=== PATIENT | female | born 1990 | race Two or more races ===

== ENCOUNTER 2020-09-14 14:36 | Inpatient (IN) | payer MEDICAID ==
[~2020-09-14] VITALS: Ht 165.1 cm; Wt 112.5 kg
[2020-09-14] MEDS ORDERED: AZITHROMYCIN 500MG/ 250ML 250 ML IV ONE (15:15)
[2020-09-14] MEDS ORDERED: SODIUM CHLORIDE 0.9% 1,000 ML IV ONE (15:15)
[2020-09-14] MEDS ORDERED: CHOLECALCIFEROL (VITD3) 2,000 UNIT CAP/TAB PO ONE (15:15)
[2020-09-14] MEDS ORDERED: SODIUM CHLORIDE 0.9% 500 ML IVB ONE (15:15)
[2020-09-14] MEDS ORDERED: ASCORBIC ACID 500 MG TAB PO ONE (15:15)
[2020-09-14] MEDS ORDERED: ZINC SULFATE 220mg CAP or TAB PO ONE (15:15)
[2020-09-14 15:45] LABS: Basophils # (auto) 0 10 ^3/uL (0-0.2); Basophils % (auto) 0.3 % (0.0-2.0); Eosinophils # (auto) 0 10 ^3/uL (0-0.8); Hematocrit 44.3 % (36.0-46.0); Hemoglobin 15.6 g/dL (12.2-16.2); Lymphocytes # (auto) 0.7 10 ^3/uL (0.4-5.4); Lymphocytes % (auto) 24.1 % (10.0-50.0); Mean Corpuscular Hemoglobin 31.5 pg (28.0-32.0); Mean Corpuscular Hgb Conc. 35.1 g/dL (32.0-36.0); Mean Corpuscular Volume 89.9 fL (80.0-100.0); Monocytes # (auto) 0.2 10 ^3/uL (0-1.3); Monocytes % (auto) 8.2 % (0.0-12.0); Neutrophils # (auto) 1.9 10 ^3/uL (1.6-8.6); Neutrophils % (auto) 67.4 % (37.0-80.0); Red Blood Cells 4.93 10^6/uL (4.0-5.20); Red Cell Distribution Width 13.4 % (11.8-14.3); White Blood Cell 2.9 10^3/uL (4.4-10.8)
[2020-09-14 16:04] LABS: Albumin 3.3 g/dL (3.4-5.0); Calcium 8.3 mg/dL (8.5-10.1); Potassium 3.2 mmol/L (3.5-5.1)
[2020-09-14 16:07] LABS: BUN/Creatinine Ratio 9.2; Bilirubin, Total 0.3 mg/dL (0.2-1.0); Total Protein 7.6 g/dL (6.4-8.2)
[2020-09-14 16:09] LABS: Urine Bacteria FEW /hpf (None Seen); Urine Blood TRACE /uL (Negative); Urine Hyaline Cast FEW /lpf (0 - 2); Urine Mucus FEW (None Seen); Urine Specific Gravity 1.039 (1.001-1.035); Urine WBC 7 /hpf (0 - 5)
[2020-09-14 16:12] LABS: Magnesium 2.3 mg/dL (1.6-2.6)
[2020-09-14] MEDS ORDERED: ACETAMINOPHEN 500 MG TAB PO ONE ×2 (17:10→17:15)
[2020-09-14] MEDS ORDERED: POTASSIUM EFFERVESENT TAB 25 MEQ PO ONE (18:30)
[2020-09-14] MEDS ORDERED: ACETAMINOPHEN 500 MG TAB PO PRN (23:15)
[2020-09-14] MEDS ORDERED: TEMAZEPAM 15 MG CAP PO PRN (23:15)
[2020-09-14] MEDS ORDERED: REMDESIVIR PER PHARMACY 0 ML IV SCH (23:15)
[2020-09-14] MEDS ORDERED: NITROGLYCERIN 0.4 MG SL TAB SL PRN (23:15)
[2020-09-14] MEDS ORDERED: ONDANSETRON HCL 4 MG/2 ML VIAL IV PRN (23:15)
[2020-09-14] MEDS ORDERED: MORPHINE SULFATE INJECTION 2 MG/ML SYRG IV PRN (23:15)
[2020-09-14 23:52] LABS: CRP High Sensitivity 5.27 mg/dL (< 0.3)
[2020-09-15] VITALS (8 sets, daily range): BP systolic 95–115; BP diastolic 45–64
[2020-09-15] MEDS ORDERED: LORA-622 PO (01:36)
[2020-09-15 02:05] LABS: Urine Bacteria NONE SEEN /hpf (None Seen); Urine Blood Negative /uL (Negative); Urine Mucus FEW (None Seen); Urine Specific Gravity 1.024 (1.001-1.035); Urine WBC 2 /hpf (0 - 5)
[2020-09-15] MEDS ORDERED: IPRATROPIUM BROMIDE HFA AER IN SCH (06:00)
[2020-09-15 06:49] LABS: Basophils # (auto) 0 10 ^3/uL (0-0.2); Basophils % (auto) 0.3 % (0.0-2.0); Eosinophils # (auto) 0 10 ^3/uL (0-0.8); Hematocrit 36.5 % (36.0-46.0); Lymphocytes # (auto) 1.2 10 ^3/uL (0.4-5.4); Lymphocytes % (auto) 38.1 % (10.0-50.0); Mean Corpuscular Hemoglobin 31.8 pg (28.0-32.0); Mean Corpuscular Hgb Conc. 35.6 g/dL (32.0-36.0); Mean Corpuscular Volume 89.4 fL (80.0-100.0); Monocytes # (auto) 0.2 10 ^3/uL (0-1.3); Monocytes % (auto) 6.5 % (0.0-12.0); Neutrophils # (auto) 1.7 10 ^3/uL (1.6-8.6); Neutrophils % (auto) 55.1 % (37.0-80.0); Nucleated Red Blood Cells % 0.2 %; Red Blood Cells 4.08 10^6/uL (4.0-5.20); Red Cell Distribution Width 13.2 % (11.8-14.3); White Blood Cell 3.1 10^3/uL (4.4-10.8)
[2020-09-15] MEDS ORDERED: IVERMECTIN 3 MG TAB PO ONE (07:00)
[2020-09-15 07:04] LABS: Albumin 2.7 g/dL (3.4-5.0); Calcium 7.7 mg/dL (8.5-10.1); Potassium 3.5 mmol/L (3.5-5.1)
[2020-09-15 07:07] LABS: Bilirubin, Total 0.2 mg/dL (0.2-1.0); Total Protein 6.1 g/dL (6.4-8.2)
[2020-09-15] MEDS: ZINC SULFATE 220mg CAP or TAB PO SCH (10:00)
[2020-09-15] MEDS ORDERED: POTASSIUM CHL 20 Meq TABLET PO ONE (10:15)
[2020-09-15] MEDS ORDERED: FUROSEMIDE 20 MG/2 ML VIAL IV ONE (10:15)
[2020-09-15] MEDS: DexAMETHasone SOD PHOS 10MG/1ML VIAL INJ IV SCH (10:30)
[2020-09-15] MEDS: AZITHROMYCIN 500MG/ 250ML 250 ML IV SCH (10:31)
[2020-09-15] MEDS: ASCORBIC ACID 1,000 MG TAB PO SCH (10:32)
[2020-09-15] MEDS: CHOLECALCIFEROL (VITD3) 2,000 UNIT CAP/TAB PO SCH (10:32)
[2020-09-15] MEDS: FAMOTIDINE 20 MG TAB PO SCH ×2 (10:33→22:30)
[2020-09-15] MEDS: ENOXAPARIN SOD 40 MG/0.4 ML SYRINGE SC SCH ×2 (10:33→22:30)
[2020-09-15] MEDS ORDERED: ACETAMINOPHEN 325 MG TAB PO PRN (10:45)
[2020-09-15] MEDS: ALBUTEROL SULF HFA 90MCG INH 200DOSE IN PRN ×2 (12:12→22:46)
[2020-09-15] MEDS: BUDESONIDE (INHALATION) 180 MCG IH IN SCH ×2 (12:12→22:45)
[2020-09-15] MEDS ORDERED: REMDESIVIR 200 MG in NS 210ml LOADING DOSE ADULT IV ONE (15:00)
[2020-09-15] MEDS ORDERED: BUDESONIDE (INHALATION) 0.5 MG/2 ML NEB NEB SCH (22:00)
[2020-09-15] MEDS ORDERED: PULMICORT IN SCH (22:00)
[2020-09-16 05:00] VITALS: BP 112/59
[2020-09-16] MEDS: BUDESONIDE (INHALATION) 180 MCG IH IN SCH ×2 (05:51→22:08)
[2020-09-16 08:00] VITALS: BP 104/55
[2020-09-16] MEDS: AZITHROMYCIN 500MG/ 250ML 250 ML IV SCH (10:40)
[2020-09-16] MEDS: DexAMETHasone SOD PHOS 10MG/1ML VIAL INJ IV SCH (10:40)
[2020-09-16] MEDS: ZINC SULFATE 220mg CAP or TAB PO SCH (10:40)
[2020-09-16] MEDS: FAMOTIDINE 20 MG TAB PO SCH ×2 (10:41→22:25)
[2020-09-16] MEDS: ASCORBIC ACID 1,000 MG TAB PO SCH (10:41)
[2020-09-16] MEDS: ENOXAPARIN SOD 40 MG/0.4 ML SYRINGE SC SCH ×2 (10:41→22:24)
[2020-09-16] MEDS: CHOLECALCIFEROL (VITD3) 2,000 UNIT CAP/TAB PO SCH (10:41)
[2020-09-16 12:01] VITALS: BP 109/59
[2020-09-16] MEDS ORDERED: ALUM & MAG HYDROX-SIMETH LIQ(MAALOX) 30 ML PO ONE (13:15)
[2020-09-16] MEDS: PANTOPRAZOLE 40 MG TAB PO SCH ×2 (13:34→22:25)
[2020-09-16 16:00] VITALS: BP 107/63
[2020-09-16] MEDS: REMDESIVIR 100mg 100 MG in SODIUM CHL 0.9% 230 ML IV SCH (16:10)
[2020-09-16 22:06] VITALS: BP 100/52
[2020-09-16] MEDS: ALBUTEROL SULF HFA 90MCG INH 200DOSE IN PRN (22:08)
[2020-09-17] VITALS (8 sets, daily range): BP systolic 88–118; BP diastolic 40–68
[2020-09-17] MEDS: BUDESONIDE (INHALATION) 180 MCG IH IN SCH ×2 (06:37→23:00)
[2020-09-17] MEDS: ALBUTEROL SULF HFA 90MCG INH 200DOSE IN PRN ×2 (06:37→23:00)
[2020-09-17 08:09] LABS: Potassium 4.3 mmol/L (3.5-5.1)
[2020-09-17 08:14] LABS: Albumin 2.7 g/dL (3.4-5.0); BUN/Creatinine Ratio 15.6; Bilirubin, Total 0.3 mg/dL (0.2-1.0); Calcium 8.2 mg/dL (8.5-10.1); Total Protein 6.6 g/dL (6.4-8.2)
[2020-09-17] MEDS: DexAMETHasone SOD PHOS 10MG/1ML VIAL INJ IV SCH (10:20)
[2020-09-17] MEDS: ZINC SULFATE 220mg CAP or TAB PO SCH (10:20)
[2020-09-17] MEDS: FAMOTIDINE 20 MG TAB PO SCH ×2 (10:20→21:23)
[2020-09-17] MEDS: AZITHROMYCIN 500MG/ 250ML 250 ML IV SCH (10:20)
[2020-09-17] MEDS: ASCORBIC ACID 1,000 MG TAB PO SCH (10:21)
[2020-09-17] MEDS: PANTOPRAZOLE 40 MG TAB PO SCH ×2 (10:21→21:23)
[2020-09-17] MEDS: ENOXAPARIN SOD 40 MG/0.4 ML SYRINGE SC SCH ×2 (10:21→21:23)
[2020-09-17] MEDS: CHOLECALCIFEROL (VITD3) 2,000 UNIT CAP/TAB PO SCH (10:21)
[2020-09-17] MEDS: REMDESIVIR 100mg 100 MG in SODIUM CHL 0.9% 230 ML IV SCH (15:43)
[2020-09-18 05:00] VITALS: BP 99/47
[2020-09-18 06:00] LABS: Basophils # (auto) 0 10 ^3/uL (0-0.2); Eosinophils # (auto) 0 10 ^3/uL (0-0.8); Hematocrit 37.7 % (36.0-46.0); Hemoglobin 13.1 g/dL (12.2-16.2); Lymphocytes # (auto) 0.9 10 ^3/uL (0.4-5.4); Lymphocytes % (auto) 19.6 % (10.0-50.0); Mean Corpuscular Hemoglobin 31.5 pg (28.0-32.0); Mean Corpuscular Hgb Conc. 34.9 g/dL (32.0-36.0); Mean Corpuscular Volume 90.2 fL (80.0-100.0); Monocytes # (auto) 0.7 10 ^3/uL (0-1.3); Neutrophils # (auto) 3.1 10 ^3/uL (1.6-8.6); Neutrophils % (auto) 65.4 % (37.0-80.0); Nucleated Red Blood Cells % 0.1 %; Red Blood Cells 4.17 10^6/uL (4.0-5.20); Red Cell Distribution Width 13.3 % (11.8-14.3); White Blood Cell 4.7 10^3/uL (4.4-10.8)
[2020-09-18 06:18] LABS: Albumin 2.7 g/dL (3.4-5.0); CRP High Sensitivity 0.86 mg/dL (< 0.3); Potassium 4.1 mmol/L (3.5-5.1)
[2020-09-18 06:21] LABS: BUN/Creatinine Ratio 19.2; Bilirubin, Total 0.3 mg/dL (0.2-1.0); Total Protein 6.3 g/dL (6.4-8.2)
[2020-09-18 08:00] VITALS: BP 94/52
[2020-09-18 08:55] VITALS: BP 94/52
[2020-09-18] MEDS: BUDESONIDE (INHALATION) 180 MCG IH IN SCH (10:00)
[2020-09-18] MEDS: ALBUTEROL SULF HFA 90MCG INH 200DOSE IN PRN (10:05)
[2020-09-18] MEDS: DexAMETHasone SOD PHOS 10MG/1ML VIAL INJ IV SCH (10:12)
[2020-09-18] MEDS: AZITHROMYCIN 500MG/ 250ML 250 ML IV SCH (10:12)
[2020-09-18] MEDS: ZINC SULFATE 220mg CAP or TAB PO SCH (10:12)
[2020-09-18] MEDS: ENOXAPARIN SOD 40 MG/0.4 ML SYRINGE SC SCH (10:13)
[2020-09-18] MEDS: FAMOTIDINE 20 MG TAB PO SCH (10:13)
[2020-09-18] MEDS: PANTOPRAZOLE 40 MG TAB PO SCH (10:13)
[2020-09-18] MEDS: ASCORBIC ACID 1,000 MG TAB PO SCH (10:14)
[2020-09-18] MEDS: CHOLECALCIFEROL (VITD3) 2,000 UNIT CAP/TAB PO SCH (10:14)
[2020-09-18 10:18] VITALS: BP 94/52
[2020-09-18 13:00] VITALS: BP 87/67
[2020-09-18 14:57] VITALS: BP 109/61
[2020-09-18] MEDS: REMDESIVIR 100mg 100 MG in SODIUM CHL 0.9% 230 ML IV SCH (15:30)
== END 2020-09-18 15:30 | disposition home or self-care (01) | DRG 137 ==
LOC: ER 14:36 → TELE 23:03 → TELE-EAST 23:22
PROVIDERS: ADMIT Nurse Practitioner; ATTEND Internal Medicine
PROC: XW033E5 Introduction of Remdesivir Anti-infective into Peripheral Vein, Percutaneous Approach, New Technology Group 5 (ICD-10-PCS; principal; 2020-09-14)
DX: U07.1 COVID-19 (principal); J96.01 Acute respiratory failure with hypoxia; J12.82 Pneumonia due to coronavirus disease 2019; E66.01 Morbid (severe) obesity due to excess calories; D68.59 Other primary thrombophilia; E44.1 Mild protein-calorie malnutrition; Z68.41 Body mass index [BMI] 40.0-44.9, adult; E87.6 Hypokalemia; E11.9 Type 2 diabetes mellitus without complications; Z20.822 Contact with and (suspected) exposure to COVID-19
CPT/HCPCS: 36415; 71045; 80053; 81001; 82306; 82728; 83036; 83605; 83615; 83690; 83735; 84443; 84484; 84702; 85025; 85379; 86141; 87040; 87426; 93005; 94640; 96361; 96365; G0378; J1100; J2405